=== PATIENT | male | born 1940 | race Two or more races ===

== ENCOUNTER 2024-08-21 13:23 | Emergency (ER) | payer OTHER ==
[~2024-08-21] VITALS: Ht 188 cm; Wt 70.0 kg
[2024-08-21 13:24] VITALS: O2SAT 98
[2024-08-21] MEDS: GLUCAGON,HUMAN RECOMBINANT 1MG/VIAL IM ONE (14:27)
[2024-08-21 17:35] VITALS: BP 149/69; PULSE 80; RESP 18; TEMP 36.8; O2SAT 98
== END 2024-08-21 17:36 | disposition home or self-care (01) ==
LOC: ER 13:23
DX: T18.128A Food in esophagus causing other injury, initial encounter (principal); J90 Pleural effusion, not elsewhere classified; I12.0 Hypertensive chronic kidney disease with stage 5 chronic kidney disease or end stage renal disease; N18.6 End stage renal disease; M54.2 Cervicalgia; Z79.899 Other long term (current) drug therapy; Z99.2 Dependence on renal dialysis; W44.F3XA Food entering into or through a natural orifice, initial encounter; Y93.89 Activity, other specified; Y92.89 Other specified places as the place of occurrence of the external cause; Y99.8 Other external cause status
CPT/HCPCS: 99285; 70490; 71045; 71250; 96372; J1610